=== PATIENT | female | born 1935 | race Caucasian/White ===

== ENCOUNTER 2019-09-10 13:54 | Outpatient (CLI) | payer MEDICARE | END 2019-09-10 23:59 | disposition home or self-care (01) | LOC: CVU 13:54 | PROVIDERS: ATTEND Nurse Practitioner Acute Care | DX: I08.0 Rheumatic disorders of both mitral and aortic valves (principal); G89.4 Chronic pain syndrome; I82.409 Acute embolism and thrombosis of unspecified deep veins of unspecified lower extremity; D64.9 Anemia, unspecified; I11.0 Hypertensive heart disease with heart failure; I50.9 Heart failure, unspecified; E87.5 Hyperkalemia; L03.119 Cellulitis of unspecified part of limb; B35.6 Tinea cruris; Z79.01 Long term (current) use of anticoagulants | CPT/HCPCS: 93306 ==